=== PATIENT | female | born 1985 | race Caucasian/White ===

== ENCOUNTER 2021-08-04 09:11 | Inpatient (IN) ==
[2021-08-04] MEDS ORDERED: Metoclopramide 10 MG/2 ML VIAL IVP PRN (10:19)
[2021-08-04] MEDS ORDERED: Naloxone 0.4 MG/ML INJ IVP PRN ×2 (10:19→10:51)
[2021-08-04] MEDS ORDERED: Azithromycin 500 MG in 0.9 % Sodium Chloride 250 ML IVPB PRN (10:19)
[2021-08-04] MEDS ORDERED: Ondansetron 4 MG/2 ML VIAL IVP PRN ×2 (10:19→10:51)
[2021-08-04] MEDS ORDERED: Lidocaine 1% 20 ML MDV INFILT PRN (10:19)
[2021-08-04] MEDS ORDERED: Famotidine 20 MG/2 ML VIAL IVP PRN (10:19)
[2021-08-04] MEDS ORDERED: *HR* Nalbuphine 10 MG/ML AMPUL IV PRN (10:19)
[2021-08-04] MEDS ORDERED: miSOPROStoL 25 MCG TABLET PO PRN (10:19)
[2021-08-04] MEDS ORDERED: Ringers Solution, Lactated 1,000 ML IVC SCH (10:30)
[2021-08-04] MEDS ORDERED: Oxytocin 20 units/ LR 1000 mL 20 UNIT/1,000 ML BAG IVC SCH ×2 (10:30→18:45)
[2021-08-04 10:45] LABS: Basophils % 0.3 %; Eosinophils # 0.1 K/mcL (0.0-0.6); Eosinophils % 0.7 %; Hematocrit 33.6 % (35.3-44.9); Hemoglobin 10.3 g/dL (11.5-15.4); Immature Granulocytes % 0.4 % (0-4); Lymphocytes # 1.3 K/mcL (0.6-4.6); Lymphocytes % 17.3 %; Mean Corpuscular HGB Conc 30.7 g/dL (31.6-35.5); Mean Corpuscular Hemoglobin 24.3 pg (28.0-33.3); Mean Corpuscular Volume 79.2 fL (83.0-100.0); Mean Platelet Volume 10.6 fL (9.4-12.4); Monocytes # 0.5 K/mcL (0.0-1.3); Monocytes % 6.5 %; Neutrophils # 5.7 K/mcL (1.6-8.9); Platelet Count 236 K/mcL (140-400); Red Blood Count 4.24 M/mcL (3.82-4.97); Red Cell Distribution Width 15.6 % (11.5-14.5); Segmented Neutrophils % 74.8 %; White Blood Count 7.6 K/mcL (4.3-11.1)
[2021-08-04] MEDS ORDERED: EPHEDrine 50 MG/ML VIAL IVP PRN (10:51)
[2021-08-04] MEDS ORDERED: Ropivacaine/PF 0.2% 20 ML VIAL EP ONE (10:51)
[2021-08-04] MEDS ORDERED: *HR* FentaNYL (PF) 100 MCG/2 ML VIAL EP ONE (10:51)
[2021-08-04] MEDS ORDERED: Epidural Premix (fent/bupiv) 110 ML EP SCH (11:00)
[2021-08-04] MEDS ORDERED: Ropivacaine/PF 0.2% 20 ML VIAL ONE (15:46)
[2021-08-04 16:02] LABS: Amphetamine Screen,Urine Negative ng/mL (Cutoff=1000); Barbiturate Screen,Urine Negative ng/mL (Cutoff=200); Benzodiazepines Screen,Urine Negative ng/mL (Cutoff=200); Cannabinoid Screen,Urine Negative ng/mL (Cutoff = 50); Cocaine Screen,Urine Negative ng/mL (Cutoff= 300); Opiate Screen,Urine Negative ng/mL (Cutoff=300); Phencyclidine Screen,Urine Negative ng/mL (Cutoff=25)
[2021-08-04] MEDS ORDERED: Ondansetron ODT 4 MG TAB.RAPDIS SL PRN (18:42)
[2021-08-04] MEDS ORDERED: Lanolin 7 G OINT...G. TP PRN (18:42)
[2021-08-04] MEDS ORDERED: Benzocaine/Menthol 56 GM AEROSOL SPRAY TP PRN (18:42)
[2021-08-04] MEDS ORDERED: Acetaminophen 325 MG TABLET PO SCH (18:45)
[2021-08-04] MEDS: Ibuprofen 600 MG TABLET PO SCH (22:01)
[2021-08-05] MEDS: Ibuprofen 600 MG TABLET PO SCH (03:56)
[2021-08-05 03:58] VITALS: O2SAT 96
[2021-08-05 07:58] VITALS: BP 110/72; PULSE 87; TEMP 98
[2021-08-05] MEDS ORDERED: Prenatal Vit/FA 1 EACH TABLET PO SCH (09:00)
[2021-08-05] MEDS ORDERED: BuPROPion XL (24 HR) 150 MG TABLET PO SCH (09:00)
[2021-08-05] MEDS ORDERED: FLU Vac QV 21-22 (6Month+)/PF 0.5 ML SYRINGE IM ONE (13:01)
== END 2021-08-05 18:30 | disposition home or self-care (01) | DRG 807 ==
LOC: 1NENULAB 09:11 → 1NENUOBS 20:36
PROVIDERS: ADMIT Advanced Practice Midwife; ATTEND Advanced Practice Midwife